=== PATIENT | female | born 1995 ===

== ENCOUNTER → 2017-02-19 02:39 | Emergency (ER) | payer OTHER ==
[~2017-02-19 02:39] MED LIST: Azithromycin TAB* 250 MG PO ONE; Lidocaine 2% PF * 5 ML VIAL ONE; Ondansetron ODT TAB* 4 MG ONE; Ondansetron ODT TAB* 4 MG PO ONE; cefTRIAXone VIAL(*) 250 MG VIAL IM ONE; metroNIDAZOLE TAB* 250 MG ONE; metroNIDAZOLE TAB* 250 MG PO ONE
[2017-02-19 02:48] VITALS: BP 134/76
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
== END ==
LOC: ED 02:39
DX: T74.21XA Adult sexual abuse, confirmed, initial encounter (principal); Y07.9 Unspecified perpetrator of maltreatment and neglect
CPT/HCPCS: 96372; 99284; A9270-GY; J0696

== ENCOUNTER 2019-01-29 14:54 | Emergency (ER) | payer OTHER ==
--- NOTE | 2019-01-29 17:20 | ED ---
Influenza-Like Illness - HPI Summary HPI Summary: 23 yo female presents with URI symptoms. She tells me that for the last 3 days she has had a fever, cough, sinus congestion, and sore throat. Fever has been Tmax 103F that resolves with tylenol/ibuprofen. She has a decreased appetite and feels fatigued. She tells me that she saw [facility] yesterday and strep test and flu test were negative. She denies SOB, chest pain, abdominal pain, n/v. - History of Current Complaint Chief Complaint: EDUpperRespComplaint Time Seen by Provider: 01/29/19 17:20 Hx Obtained From: Patient Onset/Duration: Gradual Onset Severity: Moderate - Allergy/Home Medications Allergies/Adverse Reactions: Allergies Allergy/AdvReac Type Severity Reaction Status Date / Time No Known Allergies Allergy Verified 01/29/19 15:06 PMH/Surg Hx/FS Hx/Imm Hx Previously Healthy: No Cardiovascular History: Denies: Hx Cardiac Arrest, Hx Hypotension, Hx Hypertension Respiratory History: Denies: Hx Asthma, Hx Chronic Obstructive Pulmonary Disease (COPD) Neurological History: Denies: Hx CVA, Hx Headaches - Surgical History Surgical History: None - Immunization History Immunizations Up to Date: Yes Infectious Disease History: No Infectious Disease History: Denies: Traveled Outside the [place] in Last 30 Days - Family History Known Family History: Positive: None - Social History Occupation: Student Lives: Dormitory/Roommates Alcohol Use: Weekly Substance Use Type: Reports: None Smoking Status (MU): Former Smoker Review of Systems Positive: Fever, Fatigue Eyes: Negative Positive: Sore Throat, Nasal Discharge Cardiovascular: Negative Positive: Cough Gastrointestinal: Negative Genitourinary: Negative Neurological: Negative Psychological: Normal All Other Systems Reviewed And Are Negative: No Physical Exam - Summary Physical Exam Summary: GENERAL: NAD. WDWN. No pain distress. SKIN: No rashes, sores, lesions, or open wounds. HEENT: Head: AT/NC Eyes: EOM intact. Conjunctiva clear without inflammation or discharge. Ears: Hearing grossly normal. TMs intact, no bulging, erythema, or edema. Nose: Nasal mucosa pink and moist. NTTP maxillary and frontal sinus. Throat: Posterior oropharynx without exudates, erythema, or tonsillar enlargement. Uvula midline. NECK: Supple. Nontender. No lymphadenopathy. CHEST: CTAB. No accessory muscle use. Breathing comfortably and in no distress. CV: RRR. Pulses intact. Cap refill <2seconds NEURO: Alert. PSYCH: Age appropriate behavior. Triage Information Reviewed: Yes Vital Signs On Initial Exam: Initial Vitals Temp Pulse Resp BP Pulse Ox 99.5 F 90 16 97/72 98 01/29/19 15:01 01/29/19 15:01 01/29/19 15:01 01/29/19 15:01 01/29/19 15:01 Vital Signs Reviewed: Yes Procedures - Sedation Patient Received Moderate/Deep Sedation with Procedure: No Diagnostics - Vital Signs Vital Signs Temp Pulse Resp BP Pulse Ox 01/29/19 15:01 99.5 F 90 16 97/72 98 - Laboratory Lab Statement: Any lab studies that have been ordered have been reviewed, and results considered in the medical decision making process. Flu Symptom Course/Dx - Course Course Of Treatment: Discussed viral vs bacterial symptoms with pt and she prefers to be on anbx at this time. - Diagnoses Provider Diagnoses: Pharyngitis Discharge ED - Sign-Out/Discharge Documenting (check all that apply): Patient Departure - Discharge Plan Condition: Stable Disposition: HOME Prescriptions: Amoxicillin PO (*) [Amoxicillin 875 MG (*)] 875 mg PO BID #14 tab Patient Education Materials: Pharyngitis (ED) Forms: *School Release Referrals: [facility] [Primary Care Provider] - Additional Instructions: If you develop a fever, shortness of breath, chest pain, new or worsening symptoms - please call your PCP or go to the ED immediately. Continue alternating tylenol and ibuprofen for your fever and discomfort - Billing Disposition and Condition Condition: STABLE Disposition: Home - Attestation Statements Provider Attestation: I was available for consultation for this patient. I did not evaluate the patient or participate in any medical decision making or disposition decisions unless I am specifically named in the chart as having consulted on the patient. If I have consulted on the patient, please see my own ED note on the patient encounter. Mercy Cobos MD
[2019-01-29 18:06] VITALS: BP 131/67
== END 2019-01-29 17:50 | disposition home or self-care (01) ==
LOC: ED 14:54
DX: J02.9 Acute pharyngitis, unspecified (principal); Z87.891 Personal history of nicotine dependence
CPT/HCPCS: 99282